=== PATIENT | female | born 1970 | race American Indian/Alaskan Native ===

== ENCOUNTER 2017-11-28 11:50 | Emergency (ER) | payer SELFPAY ==
[~2017-11-28] VITALS: Ht 157.5 cm; Wt 72.6 kg
[~2017-11-28 11:50] MED LIST: CEPH500 PO; CIPR500 PO; CODBUTACEC PO; HYDACE5 PO; IBUP200 PO; NITR100CA PO; OMEP20ER PO; PHENA200 PO; PROM25 PO
[2017-11-28] MEDS ORDERED: Monodox100 MG PO (12:03)
[2017-11-28] MEDS ORDERED: IBUP600 PO (12:04)
== END 2017-11-28 12:08 | disposition home or self-care (01) ==
LOC: ER 11:50
DX: L03.115 Cellulitis of right lower limb (principal)
CPT/HCPCS: 99282

== ENCOUNTER → 2021-01-23 | Outpatient (CLI) | payer OTHER ==
[~2021-01-23] MED LIST changes: +IBUP600 PO; +Monodox100 MG PO
== END | disposition home or self-care (01) ==
LOC: LAB 12:06 → LAB SHORT 12:06
DX: L02.91 Cutaneous abscess, unspecified (principal)
CPT/HCPCS: 87070; 87075; 87205

== ENCOUNTER → 2022-11-21 | Outpatient (CLI) | payer OTHER | END | disposition home or self-care (01) | LOC: LAB 13:24 → LAB SHORT 13:24 | DX: L03.119 Cellulitis of unspecified part of limb (principal) | CPT/HCPCS: 87070; 87075; 87077; 87147; 87186; 87205 ==